=== PATIENT | female | born 1955 | race Caucasian/White ===

== ENCOUNTER → 2019-09-01 | Day surgery (SDC) | payer BC ==
[~2019-09-01] VITALS: Ht 157.4 cm; Wt 88.5 kg
[~2019-09-01] MED LIST: AMLODIPINE BESY10 MG PO; METOPROLOL TART50 M1 PO; TRAMADOL HCL50 MG PO
[2019-09-01 10:00] VITALS: BP 124/52
[2019-09-01 11:04] VITALS: BP 109/40
[2019-09-01 11:16] VITALS: BP 125/52
[2019-09-01 11:31] VITALS: BP 110/48
== END | disposition home or self-care (01) ==
LOC: SDC 08-27 10:15
DX: H25.812 Combined forms of age-related cataract, left eye (principal); I10 Essential (primary) hypertension; K21.9 Gastro-esophageal reflux disease without esophagitis; E66.9 Obesity, unspecified; Z68.35 Body mass index [BMI] 35.0-35.9, adult; Z87.891 Personal history of nicotine dependence